=== PATIENT | male | born 1990 | race Two or more races ===

== ENCOUNTER 2017-06-07 16:18 | Emergency (ER) | payer OTHER ==
[2017-06-07 16:39] VITALS: BP 135/95; PULSE 88; TEMP 99; BMI 31.2
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
[2017-06-07] MEDS ORDERED: IBUPROFEN 400 MG TABLET (FP) PO ONE ×2 (16:48→17:52)
[2017-06-07] MEDS ORDERED: CYCLOBENZAPRINE HCL 5 MG TABLET PO ONE (16:49)
[2017-06-07] MEDS ORDERED: CYCLOBENZAPRINE HCL 10 MG TABLET (FP) ONE (17:52)
== END 2017-06-07 18:16 | disposition home or self-care (01) ==
LOC: FER 16:18
DX: M54.5 Low back pain (principal); V43.52XA Car driver injured in collision with other type car in traffic accident, initial encounter; Y93.89 Activity, other specified; Y92.412 Parkway as the place of occurrence of the external cause
CPT/HCPCS: 72070-TC; 72100-TC; 99281-25

== ENCOUNTER 2020-06-15 22:37 | Emergency (ER) | payer OTHER ==
[2020-06-15 22:44] VITALS: BMI 31.2
[2020-06-15 23:07] LABS: BASO % 2.9 % (0-2.0); EOS % 1.2 % (0-4.5); HEMATOCRIT 52.5 % (35.4-49); HEMOGLOBIN 17.5 GM/dl (11.7-16.9); MCHC 33.4 g/dl (32.0-35.9); MEAN CELL VOLUME 89.9 fl (80-96); MEAN PLT VOLUME 8.9 fl (7.5-11.1); MONO % 6.5 % (3.8-10.2); NEUT % 61.4 % (42.8-82.8); PLATELET COUNT 299 K/MM3 (134-434); RBC 5.84 M/mm3 (4.00-5.60); RDW 11.2 % (11.9-15.9); WHITE BLOOD COUNT 10.9 K/mm3 (4.0-10.8)
[2020-06-15 23:24] LABS: BILIRUBIN,TOTAL 0.6 mg/dl (0.2-1); CALCIUM 9.8 mg/dl (8.5-10); CREATININE 1.3 mg/dl (0.55-1.3); POTASSIUM 4.1 mmol/L (3.5-5.1); TOT PROT 8.3 g/dl (6.4-8.2)
[2020-06-16 00:03] VITALS: BP 143/104; PULSE 90; TEMP 98.7
== END 2020-06-16 00:20 | disposition home or self-care (01) ==
LOC: FER 22:37
DX: K59.00 Constipation, unspecified (principal); I10 Essential (primary) hypertension
CPT/HCPCS: 36415; 80053; 82550; 84484; 85025; 93005; 99284-25